=== PATIENT | male | born 1970 | race Caucasian/White ===

== ENCOUNTER 2017-06-18 16:44 | Observation (INO) ==
[2017-06-18] MEDS ORDERED: ONDANSETRON 4 MG/2 ML VIAL ONE ×2 (18:32→20:34)
[2017-06-18] MEDS ORDERED: HYDROmorphone 2 MG/1 ML VIAL ONE (18:32)
[2017-06-18] MEDS ORDERED: ceFAZolin 1,000 MG VIAL ONE ×2 (18:32→19:45)
[2017-06-18] MEDS ORDERED: CLINDAMYCIN INJ 600 MG in PREMIX 1 EACH IV STA (18:58)
[2017-06-18 19:03] LABS: Basophils # 0.1 10*3/uL (0.0-0.2); Basophils % 0.3 % (0.0-0.8); Hematocrit 48.3 VOL% (42.0-52.0); Hemoglobin 16.6 GM/DL (14.0-18.0); Immature Granulocytes % 0.6 %; Immature Granulocytes Absolute 0.12 #; Lymphocytes # 0.7 10*3/uL (1.4-4.0); Lymphocytes % 3.5 % (21.2-54.2); Mean Corpuscular HGB Conc 34.4 GM/DL (32-36); Mean Corpuscular Hemoglobin 31 PG (27-34); Mean Corpuscular Volume 90.4 FL (87-102); Mean Platelet Volume 11.7 FL (9.6-12.0); Monocytes # 0.9 10*3/uL (0.11-0.8); Monocytes % 4.5 % (1.7-12.7); Neutrophils # 18.4 10*3/uL (1.4-7.4); Neutrophils % 91.1 % (38.7-73.9); Platelet Count 231 T/CUMM (130-400); Red Blood Count 5.34 MC/CUMM (3.8-5.5); Red Cell Distribution Width 12.7 % (9.3-17.3); White Blood Count 20.2 T/CUMM (4-12)
[2017-06-18] MEDS ORDERED: ONDANSETRON 4 MG/2 ML VIAL IV PRN (19:05)
[2017-06-18] MEDS ORDERED: MAGNESIUM HYDROXIDE SUSP 30 ML UDCUP PO PRN ×2 (19:05→21:58)
[2017-06-18] MEDS ORDERED: PROMETHAZINE 25 MG/1 ML VIAL IM PRN ×2 (19:05→21:58)
[2017-06-18] MEDS ORDERED: MORPHINE 2 MG/1 ML SYRINGE IV PRN ×2 (19:05→21:58)
[2017-06-18] MEDS ORDERED: CLINDAMYCIN INJ 50 ML IV ONE (19:09)
[2017-06-18 19:13] LABS: PT Patient Result 10.2 SECS
[2017-06-18] MEDS ORDERED: HYDROmorphone 2 MG/1 ML VIAL IV STA (19:26)
[2017-06-18 19:40] LABS: Albumin 4.2 G/DL (3.4-5.0); Bilirubin,Total 0.6 MG/DL (0.2-1.0); Calcium 9.6 MG/DL (8.5-10.1); Magnesium 2.1 MG/DL (1.8-2.4); Osmolality,Calculated 281.4 MOS/KG (273-304); Potassium 4.3 MMOL/L (3.5-5.1); Total Protein 7.5 G/DL (6.4-8.3)
[2017-06-18 20:11] LABS: Lymphocytes 4 % (20-55); Platelet Estimate Normal; Segmented Neutrophils 93 % (50-85); Total Cells Counted 100
[2017-06-18] MEDS ORDERED: MEPERIDINE 25 MG/1 ML VIAL ONE (20:24)
[2017-06-18] MEDS ORDERED: SEVOFLURANE 1 UNIT/15 MINUTE INH ONE (20:34)
[2017-06-18] MEDS ORDERED: PROPOFOL 200 MG/20 ML VIAL IV ONE (20:34)
[2017-06-18] MEDS ORDERED: DEXAMETHASONE 10 MG/1 ML VIAL ONE (20:34)
[2017-06-18] MEDS ORDERED: ACETAMINOPHEN 1,000 MG/100 ML VIAL IV ONE (20:34)
[2017-06-18] MEDS ORDERED: KETOROLAC 30 MG/1 ML VIAL ONE (20:34)
[2017-06-18] MEDS ORDERED: SUCCINYLCHOLINE 200 MG/10 ML VIAL ONE (20:34)
[2017-06-18] MEDS ORDERED: ROCURONIUM 100 MG/10 ML VIAL IV ONE (20:34)
[2017-06-18] MEDS ORDERED: fentaNYL 100 MCG/2 ML VIAL ONE (20:34)
[2017-06-18] MEDS ORDERED: MEPERIDINE 25 MG/1 ML VIAL IV STA (20:36)
[2017-06-18] MEDS: LACTATED RINGERS 1,000 ML IV SCH (20:54)
[2017-06-19] MEDS ORDERED: CLINDAMYCIN INJ 900 MG in PREMIX 1 EACH IV SCH (01:06)
[2017-06-19] MEDS: LACTATED RINGERS 1,000 ML IV SCH (01:15)
[2017-06-19] MEDS: CLINDAMYCIN INJ 900 MG in PREMIX 1 EACH IV SCH ×2 (03:28→11:12)
[2017-06-19 11:28] VITALS: BP 122/59
== END 2017-06-19 14:25 | disposition home or self-care (01) ==
LOC: N.3E 16:44 → N.ED 16:44 → UNDODEPER 19:20 → N.ED 19:20 → N.3E 19:20 → N.ED 21:56 → N.3E 21:58
PROVIDERS: ADMIT Orthopaedic Surgery; ATTEND Orthopaedic Surgery